=== PATIENT | female | born 1975 | race Caucasian/White ===

== ENCOUNTER → 2016-12-02 | Outpatient (CLI) | payer BC ==
[~2016-12-02] MED LIST: ALBUAER INH
== END | disposition home or self-care (01) ==
LOC: C.PAPS 14:06
PROVIDERS: ATTEND Obstetrics & Gynecology
DX: Z01.419 Encounter for gynecological examination (general) (routine) without abnormal findings (principal)

== ENCOUNTER → 2017-09-24 | Outpatient (CLI) | payer OTHER ==
--- NOTE | 2017-09-24 11:41 | DIAGNOSTIC IMAGING REPORT ---
HYSTEROSALPINGOGRAM CLINICAL HISTORY: 41 years-old Female presenting with FERTILITY TESTING HARDYK TO DO. TECHNIQUE: The cervix was cannulated by the paving plant operator-veterinary laboratory diagnostician. Water soluble contrast was instilled into the uterus under fluoroscopic guidance. Multiple spot images were obtained. COMPARISON: None. FINDINGS: The uterine cavity is normal in size and shape. The uterus is deviated to the left. The fallopian tubes are patent. Free peritoneal spillage of contrast evident bilaterally. Fluoroscopy dosage (mGy): Not available. Fluoroscopy time: 1.1 minutes. Number of fluoroscopic spot images: 5. IMPRESSION: Normal hysterosalpingogram. Electronically signed by: Tan Elliott M.D. 09/24/2017 11:40 AM Dictated Date/Time: 09/24/2017 11:39 AM
--- NOTE | 2017-09-24 12:22 | OPERATIVE REPORT ---
DATE OF OPERATION: 09/24/2017 PREOPERATIVE DIAGNOSIS: Infertility testing. POSTOPERATIVE DIAGNOSIS: Same. PROCEDURE: Hysterosalpingogram. SURGEON: Zoila Hernandez MD ANESTHESIA: None. ESTIMATED BLOOD LOSS: None. DESCRIPTION OF PROCEDURE: The patient presented to the radiology suite and she was identified verbally and by bracelet. We confirmed that she was having hysterosalpingogram and we confirmed that her last menstrual period was on September 18. We confirmed that she had had her preoperative antibiotics. She was placed in the frog leg position. A speculum was placed in the vagina. The cervix was cleaned with Betadine. The anterior lip was grasped with a tenaculum. The introducer was placed into the uterus. The radiologist was called for. Dye was injected into the uterus until adequate pictures were taken and the procedure was then terminated. All instruments were removed from the vagina and hemostasis was noted to be good. The patient was sent home in stable condition. I attest to the content of the Intraoperative Record and any orders documented therein. Any exception s are noted below.
== END | disposition home or self-care (01) ==
LOC: C.RAD 11:03
PROVIDERS: ATTEND Obstetrics & Gynecology
DX: Z31.41 Encounter for fertility testing (principal)